=== PATIENT | male | born 1980 | race American Indian/Alaskan Native ===

== ENCOUNTER 2018-04-22 04:57 | Emergency (ER) | payer SELFPAY ==
--- NOTE | 2018-04-22 05:45 | ED PDOC ---
Arrival/HPI - General Chief Complaint: Psychiatric Evaluation Time Seen by Provider: 04/22/18 05:02 Historian: Patient - History of Present Illness Narrative History of Present Illness (Text): 04/22/18 05:38 37 year old male, unable to obtain past medical history, presents to the emergency department by ambulance and police after patient intoxicated apparently gestured he wanted to kill himself because he "was kicked out by his baby mama". Patient admits to drinking alcohol, but denies any drug use. Patient currently stating he does not want to kill himself and wants to leave yelling at staff. Patient denies any somatic complaint. Patient denies any fever , chills, chest pain, shortness of breath, abdominal pain, nausea, vomiting, diarrhea, urinary symptoms, back pain, neck pain, headache, dizziness, or any other complaints. Symptom Onset: Gradual Symptom Course: Unchanged Activities at Onset: Light Context: Street Past Medical History - Provider Review Nursing Documentation Reviewed: Yes - Infectious Disease Hx of Infectious Diseases: None - Cardiac Hx Cardiac Disorders: No (pt denies) - Psychiatric Hx Substance Use: No Family/Social History - Physician Review Nursing Documentation Reviewed: Yes Family/Social History: No Known Family HX Smoking Status: Former Smoker Hx Alcohol Use: Yes Frequency of alcohol use: Daily Hx Substance Use: No Allergies/Home Meds Allergies/Adverse Reactions: Allergies No Known Allergies Allergy (Verified 04/22/18 05:13) Home Medications: Home Meds Medication Instructions Recorded Confirmed No Known Home Med 04/22/18 04/22/18 Review of Systems - Physician Review All systems were reviewed & negative as marked: Yes - Review of Systems Constitutional: absent: Fevers, Other (Chills) Respiratory: absent: SOB Cardiovascular: absent: Chest Pain Gastrointestinal: absent: Abdominal Pain, Diarrhea, Nausea Genitourinary Male: absent: Dysuria, Frequency, Hematuria Neurological: absent: Headache, Dizziness Psychiatric: Suicidal Ideation Physical Exam Vital Signs Reviewed: Yes Vital Signs Temp Pulse Resp BP Pulse Ox 04/22/18 06:38 98.0 F 76 18 120/61 95 Appearance: Positive for: Well-Appearing, Non-Toxic, Comfortable Pain Distress: None Mental Status: Positive for: Alert and Oriented X 3 - Systems Exam Head: Present: Atraumatic, Normocephalic Pupils: Present: PERRL Extroacular Muscles: Present: EOMI Conjunctiva: Present: Normal Mouth: Present: Moist Mucous Membranes Neck: Present: Normal Range of Motion Respiratory/Chest: Present: Clear to Auscultation, Good Air Exchange. No: Respiratory Distress, Accessory Muscle Use Cardiovascular: Present: Regular Rate and Rhythm, Normal S1, S2. No: Murmurs Abdomen: No: Tenderness, Distention, Peritoneal Signs Back: Present: Normal Inspection Upper Extremity: Present: Normal Inspection. No: Cyanosis, Edema Lower Extremity: Present: Normal Inspection. No: Edema Neurological: Present: GCS=15, CN II-XII Intact, Speech Normal Skin: Present: Warm, Dry, Normal Color. No: Rashes Psychiatric: Present: Alert, Oriented x 3, Normal Insight, Normal Concentration , Intoxicated Medical Decision Making ED Course and Treatment: 04/22/18 05:30 Impression: 37 year old male presents stating to the police that he wanted to kill himself because he was "kicked out by his baby mama". Currently states he does not want to kill himself. Patient is intoxicated. Plan: -- EKG -- Labs -- Chest X-Ray -- Restraints/sedation -- Reassess and disposition Progress Notes: Patient attempting to leave emergency room belligerent with staff. Police were notified and arrived. Patient was restrained for his own protection. Taylor Caceres called. 04/22/18 07:00 Case endorsed to /pending medical clearance/PES evaluation/final disposition - Lab Interpretations I have reviewed the lab results: Yes - RAD Interpretation Narrative RAD Interpretations (Text): 04/22/18 06:51 NSR @ 75,NSSTT changes Radiology Orders: 04/22/18 05:34 CHEST PORTABLE [RAD] Stat Construction Quality Control Manager: ED Physician - EKG Interpretation Interpreted by ED Physician: Yes Type: 12 lead EKG - Medication Orders Current Medication Orders: Discontinued Medications Haloperidol Lactate (Haldol) 5 mg IM STAT STA PRN Reason: Protocol Stop: 04/22/18 05:58 Last Admin: 04/22/18 05:59 Dose: Lorazepam (Ativan) 2 mg IM ONCE ONE Stop: 04/22/18 05:58 Last Admin: 04/22/18 05:59 Dose: - Scribe Statement The provider has reviewed the documentation as recorded by the Lizzie Gilbert Provider Scribe Attestation: All medical record entries made by the Scribe were at my direction and personally dictated by me. I have reviewed the chart and agree that the record accurately reflects my personal performance of the history, physical exam, medical decision making, and the department course for this patient. I have also personally directed, reviewed, and agree with the discharge instructions and disposition. Disposition/Present on Arrival - Present on Arrival Any Indicators Present on Arrival: No History of DVT/PE: No History of Uncontrolled Diabetes: No Urinary Catheter: No History of Decub. Ulcer: No History Surgical Site Infection Following: None - Disposition Have Diagnosis and Disposition been Completed?: No Diagnosis: Alcohol abuse, Suicidal ideation Disposition Time: 07:00 Condition: STABLE Forms: [employer] (Sinhala)
[2018-04-22 06:38] VITALS: TEMP 98
[2018-04-22 06:58] LABS: MEAN CELL VOLUME 92.8 fl (80.0-105.0); MEAN CORPUSCULAR HEMOGLOBIN 33.8 pg (25.0-35.0); MEAN CORPUSCULAR HGB CONC 36.5 g/dl (31.0-37.0); MEAN PLATELET VOLUME 9.8 fl (7.0-11.0); RBC 4.14 10^6/uL (3.5-6.1); RED CELL DISTRIBUTION WIDTH 12.4 % (11.5-14.5); WHITE BLOOD COUNT 4.8 10^3/ul (4.5-11.0)
--- NOTE | 2018-04-22 06:59 | ED PDOC ---
Physical Exam Vital Signs Reviewed: Yes Vital Signs Temp Pulse Resp BP Pulse Ox 04/22/18 16:36 98.0 F 78 25 H 109/59 L 100 04/22/18 13:10 61 22 110/62 96 04/22/18 10:08 77 20 103/69 98 04/22/18 06:38 98.0 F 76 18 120/61 95 Temperature: Afebrile Appearance: Positive for: Well-Appearing, Non-Toxic, Comfortable Pain Distress: None Mental Status: Positive for: Alert and Oriented X 3. No: Agitated - Systems Exam Head: Present: Atraumatic Pupils: Present: PERRL Extroacular Muscles: Present: EOMI Mouth: Present: Moist Mucous Membranes Pharnyx: No: ERYTHEMA Nose (Internal): Present: Normal Inspection Neck: Present: Normal Range of Motion. No: Meningeal Signs Respiratory/Chest: Present: Clear to Auscultation. No: Respiratory Distress Cardiovascular: Present: Regular Rate and Rhythm Abdomen: No: Tenderness Neurological: Present: CN II-XII Intact, Speech Normal, Motor Func Grossly Intact, Normal Sensory Function, Normal Cerebellar Funct, Gait Normal Skin: Present: Warm Psychiatric: Present: Alert, Oriented x 3, Normal Insight, Normal Concentration. No: Agitated, Suicidal Ideation, Homicidal Ideation, Hallucinations, Intoxicated Medical Decision Making ED Course and Treatment: 04/22/18 07:00 Patient endorsed to me by Dr. Martini. Patient was brought into the ER by ambulance and police for intoxication and suicidal ideation. Pending medical clearance, PES evaluation, and final disposition. Patient has been reevaluated by me. During previous shift, patient was agitated and resulted in being seditated prior to my evaluation. At this time, respiratory rate is 16 and saturation is at 98%. Patient is arousable and appears to be in no distress. Currently awaiting labs/drug screening medical clearance for PES evaluation. 04/22/18 10:22 Patient becomes aggressive when asked to provide urine. Urine triage ordered to assess for possible substance induced mood disorder. 04/22/18 13:31 Patient re-examined every hour. He is sleeping, easily arousable. Will open eyes. When asked how he is feeling he states "fine" and goes back to bed. Denies any headache or chest pain or shortness of breath. No respiratory distress. Continuing serial exams. 04/22/18 15:[address] head unremarkable. He remains sleeping, but easily arousable and will answer simple questions. Restraints removed. Awaiting urine triage and sobriety. Plan to consult PES. He moves all extremities well. 04/22/18 16:03 Patient fully awake, asking for something to eat and drink. Denies pain or discomfort. 04/22/18 17:06 Patient refuses to give urine specimen. He states that "I was kicked out of the house and it was raining outside so I was homeless". He states "someone told me when they picked me up to say I was suicidal so I would have a dry place to stay ". Patient is not agitated or aggressive towards me. He is alert, ambulatory. He denies suicidal or homicidal ideation. He states he will call friends for a place to stay. He adamantly denies any suicidal ideation or homicidal ideation to me. He is not tremulous. He is not tachyhcardic. He has normal speech, steady gait. Awaiting PES evaluation. Patient has been informed of EKG findings. He denies any chest pain or shortness of breath. I have advised no sports or strenuous activity until evaluated by a advertising supervisor. He is able to express back understanding of need to follow-up with advertising supervisor and risks. 04/22/18 19:[address] Martini pending PES evaluation. - Lab Interpretations Lab Results: 04/22/18 06:49 04/22/18 06:49 Lab Results 04/22/18 06:49: Alcohol, Quantitative 139 H 04/22/18 06:49: WBC 4.8, RBC 4.14, Hgb 14.0, Hct 38.4 L, MCV 92.8, MCH 33.8, MCHC 36.5, RDW 12.4, Plt Count 267, MPV 9.8 04/22/18 06:49: Sodium 145, Potassium 3.7, Chloride 108 H, Carbon Dioxide 19 L, Anion Gap 21 H, BUN 14, Creatinine 1.0, Est GFR ( Amer) > 60, Est GFR ( Non-Af Amer) > 60, Random Glucose 87, Calcium 9.2, Total Bilirubin 0.6, AST 37, ALT 25, Alkaline Phosphatase 71, Total Protein 8.0, Albumin 4.6, Globulin 3.4, Albumin/Globulin Ratio 1.3 - RAD Interpretation Radiology Orders: 04/22/18 05:34 CHEST PORTABLE [RAD] Stat 04/22/18 13:33 HEAD W/O CONTRAST [CT] Stat - Medication Orders Current Medication Orders: Discontinued Medications Haloperidol Lactate (Haldol) 5 mg IM STAT STA PRN Reason: Protocol Stop: 04/22/18 05:58 Last Admin: 04/22/18 05:59 Dose: Lorazepam (Ativan) 2 mg IM ONCE ONE Stop: 04/22/18 05:58 Last Admin: 04/22/18 05:59 Dose: - Scribe Statement The provider has reviewed the documentation as recorded by the Lizzie Miller Provider Scribe Attestation: All medical record entries made by the Scribe were at my direction and personally dictated by me. I have reviewed the chart and agree that the record accurately reflects my personal performance of the history, physical exam, medical decision making, and the department course for this patient. I have also personally directed, reviewed, and agree with the discharge instructions and disposition. Disposition/Present on Arrival - Present on Arrival Any Indicators Present on Arrival: No History of DVT/PE: No History of Uncontrolled Diabetes: No Urinary Catheter: No History of Decub. Ulcer: No History Surgical Site Infection Following: None - Disposition Have Diagnosis and Disposition been Completed?: Yes Diagnosis: Alcohol intoxication Disposition Time: 19:00 Patient Problems: Current Active Problems Problem Status Onset Alcohol intoxication Acute Condition: GOOD Discharge Instructions (ExitCare): Alcohol Abuse and Alcoholism (DC) Additional Instructions: For any headaches, any chest pain, any shortness of breath, any abdominal pain, any nausea or vomiting, any bloody urine or stool, any shaking, any dizziness or lightheadedness, any tremors, any new or persistent symptoms, get rechecked. Risks of excessive alcohol use have been reviewed with you. No strenuous activity or sports until cleared by a advertising supervisor, please follow- up with a advertising supervisor. Referrals: [facility] [Outside] - Follow up with primary Sally Mboley MD [Staff Provider] - Follow up with primary Renny Hummel MD [Staff Provider] - Follow up with primary Forms: [employer] (Yoruba)
[2018-04-22 07:09] LABS: ALB/GLOB RATIO 1.3 (1.1-1.8); ALBUMIN 4.6 g/dL (3.0-4.8); ALT/SGPT 25 U/L (7-56); AST/SGOT 37 U/L (17-59); BLOOD UREA NITROGEN 14 mg/dL (7-21); CALCIUM 9.2 mg/dL (8.4-10.5); GFR AFRICAN-AMERICAN > 60; GFR NON-AFRICAN AMERICAN > 60
--- NOTE | 2018-04-22 09:03 | RAD ---
Date of service: 04/22/2018 HISTORY: medical clearance COMPARISON: No prior. FINDINGS: LUNGS: No active pulmonary disease. PLEURA: No significant pleural effusion identified, no pneumothorax apparent. CARDIOVASCULAR: Normal. OSSEOUS STRUCTURES: No significant abnormalities. VISUALIZED UPPER ABDOMEN: Normal. OTHER FINDINGS: None. IMPRESSION: No active disease.
--- NOTE | 2018-04-22 14:24 | CT ---
Date of service: 04/22/2018 PROCEDURE: CT HEAD WITHOUT CONTRAST. HISTORY: agitation COMPARISON: None available. TECHNIQUE: Axial computed tomography images were obtained through the head/brain without intravenous contrast. Radiation dose: Total exam DLP = 901 mGy-cm. This CT exam was performed using one or more of the following dose reduction techniques: Automated exposure control, adjustment of the mA and/or kV according to patient size, and/or use of iterative reconstruction technique. FINDINGS: HEMORRHAGE: No intracranial hemorrhage. BRAIN: No mass effect or edema. No atrophy or chronic microvascular ischemic changes. VENTRICLES: Unremarkable. No hydrocephalus. CALVARIUM: Unremarkable. PARANASAL SINUSES: Unremarkable as visualized. No significant inflammatory changes. MASTOID AIR CELLS: Unremarkable as visualized. No inflammatory changes. OTHER FINDINGS: None. IMPRESSION: No acute intracranial finding
--- NOTE | 2018-04-22 17:03 | CARD ---
APPROVED REPORT Date of service: 04/22/2018 EKG Measurement Heart [id number] <Conclusion> Normal sinus rhythm Possible Left atrial enlargement RSR' or QR pattern in V1 suggests right ventricular conduction delay Borderline ECG
--- NOTE | 2018-04-22 19:33 | ED PDOC ---
Physical Exam Vital Signs Temp Pulse Resp BP Pulse Ox 04/22/18 21:52 82 18 115/72 98 04/22/18 16:36 98.0 F 78 25 H 109/59 L 100 04/22/18 13:10 61 22 110/62 96 04/22/18 10:08 77 20 103/69 98 04/22/18 06:38 98.0 F 76 18 120/61 95 Medical Decision Making ED Course and Treatment: 04/22/18 19:00 Case endorsed to me by Dr. Rosado. Patient is a 37 y/o male with possible suicidal ideation. Currently patient is asymptomatic and pending PES evaluation. 04/22/18 22:20 Pt seen and evaluated by PES screengianna Shaw, who discussed case with psychiatrist education and training coordinator. Pt is cleared for d/c home with outpt f/u at [facility]. Pt agreeable with plan. - Lab Interpretations Lab Results: 04/22/18 06:49 04/22/18 06:49 Lab Results 04/22/18 06:49: Alcohol, Quantitative 139 H 04/22/18 06:49: WBC 4.8, RBC 4.14, Hgb 14.0, Hct 38.4 L, MCV 92.8, MCH 33.8, MCHC 36.5, RDW 12.4, Plt Count 267, MPV 9.8 04/22/18 06:49: Sodium 145, Potassium 3.7, Chloride 108 H, Carbon Dioxide 19 L, Anion Gap 21 H, BUN 14, Creatinine 1.0, Est GFR ( Amer) > 60, Est GFR ( Non-Af Amer) > 60, Random Glucose 87, Calcium 9.2, Total Bilirubin 0.6, AST 37, ALT 25, Alkaline Phosphatase 71, Total Protein 8.0, Albumin 4.6, Globulin 3.4, Albumin/Globulin Ratio 1.3 - RAD Interpretation Radiology Orders: 04/22/18 05:34 CHEST PORTABLE [RAD] Stat 04/22/18 13:33 HEAD W/O CONTRAST [CT] Stat - Medication Orders Current Medication Orders: Discontinued Medications Haloperidol Lactate (Haldol) 5 mg IM STAT STA PRN Reason: Protocol Stop: 04/22/18 05:58 Last Admin: 04/22/18 05:59 Dose: Lorazepam (Ativan) 2 mg IM ONCE ONE Stop: 04/22/18 05:58 Last Admin: 04/22/18 05:59 Dose: Disposition/Present on Arrival - Present on Arrival Any Indicators Present on Arrival: No History of DVT/PE: No History of Uncontrolled Diabetes: No Urinary Catheter: No History of Decub. Ulcer: No History Surgical Site Infection Following: None - Disposition Have Diagnosis and Disposition been Completed?: Yes Diagnosis: Alcohol intoxication, Depression Disposition: HOME/ ROUTINE Disposition Time: 22:20 Patient Plan: Discharge Patient Problems: Current Active Problems Problem Status Onset Alcohol intoxication Acute Depression Acute Condition: GOOD Discharge Instructions (ExitCare): Alcohol Abuse and Alcoholism (DC), Depression, Adult (DC) Additional Instructions: For any headaches, any chest pain, any shortness of breath, any abdominal pain, any nausea or vomiting, any bloody urine or stool, any shaking, any dizziness or lightheadedness, any tremors, any new or persistent symptoms, get rechecked. Risks of excessive alcohol use have been reviewed with you. Referrals: [facility] [Outside] - Follow up with primary Renny Hummel MD [Staff Provider] - Follow up with primary Sally Mobley MD [Staff Provider] - Follow up with primary Forms: [employer] (Italian)
[2018-04-22 21:54] VITALS: BP 115/72; PULSE 82; O2SAT 98
[2018-04-22 23:29] VITALS: RESP 17
== END 2018-04-22 23:29 | disposition home or self-care (01) ==
LOC: ED 04:57 → MERGE 04:57 → ED 23:29
DX: F10.129 Alcohol abuse with intoxication, unspecified (principal); F32.9 Major depressive disorder, single episode, unspecified; R45.851 Suicidal ideations
CPT/HCPCS: 70450; 71045; 80053; 85027; 90791; 93005; 99285; G0480; J1630; J2060

== ENCOUNTER 2018-06-05 03:20 | Emergency (ER) | payer SELFPAY ==
[2018-06-05 03:20] VITALS: BMI 23.6
[2018-06-05 03:29] VITALS: BP 126/73; PULSE 60; RESP 18; TEMP 98.7; O2SAT 98
--- NOTE | 2018-06-05 04:30 | ED PDOC ---
Arrival/HPI - General Chief Complaint: Chest Pain Time Seen by Provider: 06/05/18 03:29 Historian: Patient - History of Present Illness Narrative History of Present Illness (Text): 06/05/18 03:56 37 year old male, whose past medical history includes polysubstance abuse and alcohol abuse, presents to the emergency department for evaluation of chest discomfort. Patient states he felt alicja raised area to his right anterior chest /rib. Patient states he has discomfort to that area. Patient has a history of boxing and states he does get hit in the chest from time to time. Patient states he feels anxious and concerned that he has something wrong to the chest area. He states he was seen in another hospital ER and left because he felt he was not cared for. Patient denies any fever, chills, cough, exertional chest pain, shortness of breath, nausea, vomiting, diarrhea, urinary symptoms, back pain, neck pain, headache, dizziness, or any other complaints. Symptom Onset: Gradual Symptom Course: Unchanged Activities at Onset: Light Context: Other Past Medical History - Provider Review Nursing Documentation Reviewed: Yes - Infectious Disease Hx of Infectious Diseases: None - Cardiac Hx Hypertension: No - Pulmonary Hx Tuberculosis: No - Neurological Hx Seizures: No - Hematological/Oncological Hx Cancer: No - Genitourinary/Gynecological Hx Sexually Transmitted Diseases: No - Psychiatric Hx Substance Use: Yes - Surgical History Hx Orthopedic Surgery: Yes (METAL PLACE IN FACE DUE TO BROKEN NOSE PER PATIENT) - Anesthesia Hx Anesthesia: Yes - Suicidal Assessment Feels Threatened In Home Enviroment: No Family/Social History - Physician Review Nursing Documentation Reviewed: Yes Family/Social History: No Known Family HX Smoking Status: Light Smoker < 10 Cigarettes Daily Hx Alcohol Use: Yes Hx Substance Use: Yes Substance used: MARIJUANA Allergies/Home Meds Allergies/Adverse Reactions: Allergies No Known Allergies Allergy (Verified 06/04/18 23:22) Home Medications: Home Meds Medication Instructions Recorded Confirmed No Known Home Med 05/20/18 06/05/18 Review of Systems - Physician Review All systems were reviewed & negative as marked: Yes - Review of Systems Constitutional: absent: Fevers, Other (Chills) Respiratory: absent: SOB Cardiovascular: Chest Pain. absent: Other (Exertional chest pain) Gastrointestinal: absent: Diarrhea, Nausea, Vomiting Genitourinary Male: absent: Dysuria, Frequency, Hematuria Musculoskeletal: absent: Back Pain, Neck Pain Neurological: absent: Headache, Dizziness Physical Exam Vital Signs Reviewed: Yes Vital Signs Temp Pulse Resp BP Pulse Ox 06/05/18 03:29 98.7 F 60 18 126/73 98 Temperature: Afebrile Blood Pressure: Normal Pulse: Regular Respiratory Rate: Normal Appearance: Positive for: Well-Appearing, Non-Toxic, Comfortable Pain Distress: None Mental Status: Positive for: Alert and Oriented X 3 - Systems Exam Head: Present: Atraumatic, Normocephalic Pupils: Present: PERRL Extroacular Muscles: Present: EOMI Conjunctiva: Present: Normal Mouth: Present: Moist Mucous Membranes Neck: Present: Normal Range of Motion Respiratory/Chest: Present: Clear to Auscultation, Good Air Exchange, Other ( Slightly raised alicja protuberance tender to palpation right medial sternal / rib area). No: Respiratory Distress, Accessory Muscle Use Cardiovascular: Present: Regular Rate and Rhythm, Normal S1, S2. No: Murmurs Abdomen: Present: Normal Bowel Sounds. No: Tenderness, Distention, Peritoneal Signs Back: Present: Normal Inspection Upper Extremity: Present: Normal Inspection. No: Cyanosis, Edema Lower Extremity: Present: Normal Inspection. No: Edema Neurological: Present: GCS=15, CN II-XII Intact, Speech Normal Skin: Present: Warm, Dry, Normal Color. No: Rashes Psychiatric: Present: Alert, Oriented x 3, Normal Insight, Normal Concentration Medical Decision Making ED Course and Treatment: 06/05/18 03:56 Impression: 37 year old male presents complaining of alicja protuberance to the right lower anterior chest/rib area. Patient history of boxing. Plan: -- CT Chest w/o contrast -- EKG -- Reassess and disposition Prior Visits: Notes and results from previous visits were reviewed. Progress Notes: EXAM: CT Chest Without Intravenous Contrast Dictated and Authenticated by: Hemant Rose MD 06/05/2018 5:56 AM IMPRESSION: 1. Displaced sternal fracture which may be acute or chronic. Correlation with history and physical findings would be helpful. 2. Small infiltrate in the superior segment right lower lobe. EKG shows Sinus Bradycardia at 57 BPM with no acute changes. Interpreted by me. 06/05/18 06:14 Patient was advised of his CT findings.Pt. refuses admission to the hospital for further treatment.States that he has personal matters to care to today.I explained in full risks in leaving.He understands but insist on leaving and returning at a later time for further treatment.Patient will sign out AGAINST MEDICAL ADVICE. - RAD Interpretation Radiology Orders: 06/05/18 03:48 CHEST W/O CONTRAST [CT] Stat - Scribe Statement The provider has reviewed the documentation as recorded by the Scribe Beni Gilbert Provider Scribe Attestation: All medical record entries made by the Scribe were at my direction and personally dictated by me. I have reviewed the chart and agree that the record accurately reflects my personal performance of the history, physical exam, medical decision making, and the department course for this patient. I have also personally directed, reviewed, and agree with the discharge instructions and disposition. Disposition/Present on Arrival - Present on Arrival Any Indicators Present on Arrival: No History of DVT/PE: No History of Uncontrolled Diabetes: No Urinary Catheter: No History of Decub. Ulcer: No History Surgical Site Infection Following: None - Disposition Have Diagnosis and Disposition been Completed?: Yes Diagnosis: Sternal fracture, Chest pain Disposition: AGAINST MEDICAL ADVICE Disposition Time: 06:14 Condition: STABLE Discharge Instructions (ExitCare): Chest Pain (ED) Forms: [employer] (Grenadian)
--- NOTE | 2018-06-05 09:38 | CARD ---
APPROVED REPORT Date of service: 06/05/2018 EKG Measurement Heart Axix23TALS CA [id number] <Conclusion> Sinus bradycardia RVCD LVH by voltage, possibly a normal variant NSSTW changes, new
--- NOTE | 2018-06-05 11:51 | CT ---
Date of service: 06/05/2018 PROCEDURE: CT Chest without contrast HISTORY: pain/injury COMPARISON: None available. TECHNIQUE: Contiguous axial images were obtained through the chest without intravenous contrast enhancement. Sagittal and coronal reconstructions were performed. Radiation dose (DLP): 319 mGy-cm. This CT exam was performed using one or more of the following dose reduction techniques: Automated exposure control, adjustment of the mA and/or kV according to patient size, and/or use of iterative reconstruction technique. FINDINGS: LUNGS: Minimal patchy nodular infiltrates are seen in the superior segment of the right upper lobe. MEDIASTINUM: Unremarkable thoracic aorta. No aneurysm. Normal sized heart. Main pulmonary artery unremarkable. No vascular congestion. No lymphadenopathy. PLEURA: No pleural fluid. No pneumothorax. BONES: There is a displaced fracture through the upper portion of the sternum UPPER ABDOMEN: Grossly unremarkable. OTHER FINDINGS: The report concurs with the preliminary [facility] report IMPRESSION: Displaced fracture in the upper portion of the sternum. Minimal patchy nodular infiltrates in the superior segment of the right lower lobe
== END 2018-06-05 06:45 | disposition left against medical advice (07) ==
LOC: ED 03:20
DX: R07.89 Other chest pain (principal); S22.20XA Unspecified fracture of sternum, initial encounter for closed fracture; X58.XXXA Exposure to other specified factors, initial encounter; F17.210 Nicotine dependence, cigarettes, uncomplicated